=== PATIENT | male | born 1960 | race Caucasian/White ===

== ENCOUNTER 2016-08-17 13:31 | Outpatient (CLI) | payer MEDICARE ==
[2016-08-17 14:02] LABS: #Basophils 0.1 thou/uL (0.0-0.2); #Eosinphils 0.1 thou/uL (0.0-0.7); #Lymphocytes 2.4 thou/uL (1.20-3.40); #Monocytes 0.5 thou/uL (0.11-0.59); #Neutrophils 3.1 thou/uL (1.40-6.50); %Basophils 1.3 % (0.0-1.0); %Eosinophils 1.6 % (0.0-10.0); %Lymphocytes 38.8 % (21.0-51.0); %Monocytes 7.8 % (0.0-10.0); %Neutrophils 50.6 % (42.0-75.0); Hemoglobin 15.1 g/dL (14.0-18.0); Mean Corpuscular HGB CONC 33.5 g/dL (32.0-36.0); Mean Corpuscular Hemoglobin 30.3 pg (27.0-31.0); Mean Corpuscular Volume 90.4 fl (80.0-94.0); Mean Platelet Volume 8.3 fL (7.4-10.4); Platelet Count 212 thou/uL (130-400); RBC Distribution Width 11.2 % (11.5-14.5); Red Blood Cell (RBC) Count 4.99 mill/uL (4.70-6.10); White Blood Cell (WBC) Count 6.2 thou/uL (4.8-10.8)
[2016-08-17 14:13] LABS: Hemoglobin A1c 6.4 % (4.0-6.0)
[2016-08-17 14:19] LABS: ALT (SGPT) 52 U/L (8-55); AST (SGOT) 23 U/L (5-34); Albumin 4.4 g/dL (3.5-5.0); Alkaline Phosphatase 65 U/L (40-150); Anion Gap 15 mmol/L (10-20); BUN (Urea Nitrogen) 15 mg/dL (8.4-25.7); Bilirubin, Total 0.7 mg/dL (0.2-1.2); Calc. Creatinine Clearance 0 mL/min (70-130); Calcium 9.7 mg/dL (7.8-10.44); Carbon Dioxide 26 mmol/L (22-29); Cardiac Risk 3.4 (Less than 4.5); Chloride 105 mmol/L (98-107); Cholesterol 141 mg/dl (< 200 Desired); Estimated GFR-MDRD 79; Globulin 3.3 g/dL (2.4-3.5); Glucose 156 mg/dL (70-105); HDL Cholesterol 41 mg/dL (>60 Neg Risk); LDL Cholesterol, Calculated 82 mg/dL; Protein, Total 7.7 g/dL (6.0-8.3); Sodium 142 mmol/L (136-145); Triglycerides 88 mg/dL (Less than 150)
[2016-08-17 15:50] LABS: Bilirubin Negative (Negative); Blood, Urine Negative (Negative); Clarity Clear (Clear); Glucose, Urine (Dipstick) Negative (Negative); Leukocyte Negative (Negative); Nitrite Negative (Negative); Protein, Urine (Dipstick) Negative (Neg-Trace)
[2016-08-17 22:27] LABS: RBC/HPF 0-3 HPF (0-3); Squamous Epithelial 0-3 HPF (0-3); WBC/HPF 0-3 HPF (0-3)
[2016-08-18 17:28] LABS: Creatinine, Urine 131.18 mg/dL (63-166); Microalbumin Urine 2.8 mg/dL (0.5-50.0); Microalbumin/Creat Ratio 21.3 mg/g (Less than 30)
== END 2016-08-17 13:32 | disposition home or self-care (01) ==
LOC: NAV LAB 13:31
PROVIDERS: ATTEND Family Medicine
DX: E78.2 Mixed hyperlipidemia (principal); E11.9 Type 2 diabetes mellitus without complications; I10 Essential (primary) hypertension; E29.1 Testicular hypofunction
CPT/HCPCS: 80053; 80061; 81001; 82043; 83036; 84403; 84443; 85025

== ENCOUNTER 2016-08-21 17:52 | Emergency (ER) | payer MEDICARE ==
[2016-08-21] MEDS ORDERED: Sodium Chloride 0.9% 1,000 ML ONE ×2 (18:07→18:44)
[2016-08-21] MEDS ORDERED: Ondansetron HCl/PF 4 MG/2 ML Vial ONE ×2 (18:07→18:34)
[2016-08-21 18:18] LABS: Bilirubin Negative (Negative); Blood, Urine Negative (Negative); Clarity Clear (Clear); Glucose, Urine (Dipstick) Negative (Negative); Leukocyte Negative (Negative); Nitrite Negative (Negative); Protein, Urine (Dipstick) Trace mg/dL (Neg-Trace); Specific Gravity, Urine 1.025 (1.005-1.030)
[2016-08-21 18:34] LABS: #Basophils 0.1 thou/uL (0.0-0.2); #Eosinphils 0.1 thou/uL (0.0-0.7); #Lymphocytes 3.6 thou/uL (1.20-3.40); #Monocytes 0.7 thou/uL (0.11-0.59); #Neutrophils 6.1 thou/uL (1.40-6.50); %Basophils 1.3 % (0.0-1.0); %Lymphocytes 33.9 % (21.0-51.0); %Monocytes 6.8 % (0.0-10.0); %Neutrophils 57.1 % (42.0-75.0); Hemoglobin 15.6 g/dL (14.0-18.0); Mean Corpuscular HGB CONC 33.2 g/dL (32.0-36.0); Mean Corpuscular Hemoglobin 29.8 pg (27.0-31.0); Mean Corpuscular Volume 89.6 fl (80.0-94.0); Mean Platelet Volume 7.5 fL (7.4-10.4); Platelet Count 229 thou/uL (130-400); RBC Distribution Width 11.1 % (11.5-14.5); Red Blood Cell (RBC) Count 5.23 mill/uL (4.70-6.10); White Blood Cell (WBC) Count 10.7 thou/uL (4.8-10.8)
[2016-08-21 18:44] LABS: ALT (SGPT) 46 U/L (8-55); AST (SGOT) 23 U/L (5-34); Albumin 4.7 g/dL (3.5-5.0); Alkaline Phosphatase 72 U/L (40-150); Anion Gap 20 mmol/L (10-20); BUN (Urea Nitrogen) 22 mg/dL (8.4-25.7); Bilirubin, Total 0.6 mg/dL (0.2-1.2); Calc. Creatinine Clearance 0 mL/min (70-130); Calcium 10.3 mg/dL (7.8-10.44); Carbon Dioxide 21 mmol/L (22-29); Chloride 106 mmol/L (98-107); Estimated GFR-MDRD 70; Globulin 3.3 g/dL (2.4-3.5); Glucose 134 mg/dL (70-105); Lipase 31 U/L (8-78); Potassium 3.8 mmol/L (3.5-5.1); Sodium 143 mmol/L (136-145)
[2016-08-21] MEDS ORDERED: Ketorolac Tromethamine 30 MG/ML VIAL ONE (18:48)
--- NOTE | 2016-08-21 20:27 | CT ---
CT ABDOMEN NONCONTRAST CT PELVIS NONCONTRAST: (urolithiasis protocol) DATE: 08-21-16 HISTORY: 56-year-old male with sudden onset right flank pain. COMPARISON: None available. TECHNIQUE: IV injection of iodinated contrast media: none Oral contrast media: none FINDINGS: Other than for urolithiasis, the lack of IV and oral contrast limits the evaluation. There is a 2 mm tiny calculus at the right UVJ, causing mild right hydroureteronephrosis. There are no calculi within the right kidney. There is a 2 cm cyst at the lateral aspect of the right renal mi d/lower pole parenchyma. There are several small calculi in the left kidney, including two 1 mm calc guido at upper pole calices, and either an elongated single calculus or two calculi adjacent to each o ther at the left renal lower pole, in aggregate measuring 10 x 3 x 2 mm. No left sided hydronephrosi s. Within the limitations of a noncontrast scan, no gross pathology is identified involving the colon, appendix, small intestine, abdominal aorta, adrenals, pancreas, liver, or spleen. Lung bases are esvin ar. No pneumoperitoneum or ascites. IMPRESSION: 1. Mild right obstructive uropathy: A tiny 2 mm calculus at the right ureterovesical junction causin g mild right hydroureteronephrosis. 2. Left nephrolithiasis. RAMESH Montez POS: THANIA
== END 2016-08-21 19:10 | disposition home or self-care (01) ==
LOC: NAV ERS 17:52
DX: N13.2 Hydronephrosis with renal and ureteral calculous obstruction (principal); E10.9 Type 1 diabetes mellitus without complications; E78.5 Hyperlipidemia, unspecified; I10 Essential (primary) hypertension; Z79.899 Other long term (current) drug therapy
CPT/HCPCS: 74176; 80053; 81003; 83690; 85025; 96365; 96375; 96376; J1885; J2270; J2405; J7050

== ENCOUNTER 2016-08-28 11:11 | Emergency (ER) | payer MEDICARE ==
[2016-08-28] MEDS ORDERED: Tetracaine HCl 0.5% Ophth Soln 2 ML Bottle ONE (11:44)
[2016-08-28] MEDS ORDERED: Fluorescein Opthalmic Strip ONE (11:44)
[2016-08-28] MEDS ORDERED: Gentamicin Ophth Soln 0.3% 5 ml Bottle ONE (11:59)
[2016-08-28] MEDS ORDERED: Gentamicin Ophth Ointment 0.3% 3.5 gm Tube ONE (12:00)
== END 2016-08-28 12:07 | disposition home or self-care (01) ==
LOC: NAV ERS 11:11
DX: H10.9 Unspecified conjunctivitis (principal); E10.9 Type 1 diabetes mellitus without complications; I10 Essential (primary) hypertension; E78.5 Hyperlipidemia, unspecified; Z79.4 Long term (current) use of insulin; Z79.84 Long term (current) use of oral hypoglycemic drugs; Z79.899 Other long term (current) drug therapy
CPT/HCPCS: 99283

== ENCOUNTER 2017-01-05 19:55 | Emergency (ER) | payer MEDICARE ==
[2017-01-05] MEDS ORDERED: Ketorolac Tromethamine 30 MG/ML VIAL ONE (20:04)
[2017-01-05] MEDS ORDERED: Ondansetron HCl/PF 4 MG/2 ML Vial ONE (20:04)
[2017-01-05 20:16] LABS: #Basophils 0.1 thou/uL (0.0-0.2); #Eosinphils 0.1 thou/uL (0.0-0.7); #Lymphocytes 3.8 thou/uL (1.20-3.40); #Monocytes 0.8 thou/uL (0.11-0.59); #Neutrophils 5.9 thou/uL (1.40-6.50); %Basophils 0.8 % (0.0-1.0); %Eosinophils 0.8 % (0.0-10.0); %Lymphocytes 35.8 % (21.0-51.0); %Monocytes 7.3 % (0.0-10.0); %Neutrophils 55.3 % (42.0-75.0); Hemoglobin 15.9 g/dL (14.0-18.0); Mean Corpuscular HGB CONC 32.9 g/dL (32.0-36.0); Mean Corpuscular Hemoglobin 30.9 pg (27.0-31.0); Mean Corpuscular Volume 93.8 fl (80.0-94.0); Mean Platelet Volume 7.9 fL (7.4-10.4); Platelet Count 248 thou/uL (130-400); Red Blood Cell (RBC) Count 5.15 mill/uL (4.70-6.10); White Blood Cell (WBC) Count 10.6 thou/uL (4.8-10.8)
[2017-01-05] MEDS ORDERED: Tamsulosin HCl 0.4 MG CAP ONE (20:35)
[2017-01-05 20:44] LABS: ALT (SGPT) 62 U/L (8-55); AST (SGOT) 31 U/L (5-34); Albumin 4.8 g/dL (3.5-5.0); Alkaline Phosphatase 63 U/L (40-150); Anion Gap 17 mmol/L (10-20); BUN (Urea Nitrogen) 22 mg/dL (8.4-25.7); Bilirubin, Total 0.7 mg/dL (0.2-1.2); Calc. Creatinine Clearance 0 mL/min (70-130); Calcium 10.3 mg/dL (7.8-10.44); Carbon Dioxide 22 mmol/L (22-29); Chloride 107 mmol/L (98-107); Estimated GFR-MDRD 70; Globulin 3.3 g/dL (2.4-3.5); Glucose 154 mg/dL (70-105); Potassium 3.7 mmol/L (3.5-5.1); Protein, Total 8.1 g/dL (6.0-8.3); Sodium 142 mmol/L (136-145)
[2017-01-05 21:12] LABS: Bilirubin Negative (Negative); Blood, Urine Large (Negative); Clarity Clear (Clear); Glucose, Urine (Dipstick) Negative (Negative); Leukocyte Negative (Negative); Nitrite Negative (Negative); Protein, Urine (Dipstick) 30 mg/dL (Neg-Trace); Urobilinogen 0.2 mg/dL (0.2-1.0)
[2017-01-05 21:14] LABS: RBC/HPF GREATER THAN 50-TNTC HPF (0-3); Squamous Epithelial 0-3 HPF (0-3)
--- NOTE | 2017-01-05 21:22 | CT ---
CT ABDOMEN NONCONTRAST CT PELVIS NONCONTRAST: (urolithiasis protocol) DATE: 11/05/16 TIME: 8:20 p.m. HISTORY: 56-year-old male with acute left flank pain radiating to the left scrotum, with dysuria, nausea, and emesis. COMPARISON: 08/21/16 CT. TECHNIQUE: IV injection of iodinated contrast media: none Oral contrast media: none FINDINGS: Other than for urolithiasis, the lack of IV and oral contrast limits the evaluation. There is a 2 mm punctate calculus at the left UVJ causing mild dilation of the left ureter and mild dilation of the left renal collecting system, representing new findings compared to the previous CT (previously demonstrated 2 mm calculus in the contralateral right UVJ is no longer present). There are two calculi in left renal lower pole calyx. The larger one measures 7 mm, while the smalle r one measures 4 mm. They are very close to each other. There are two punctate tiny calculi in left upper and mid pole calyces, on the order of 2 mm in size each. Tiny 1 mm calculi in the right kidney are only visible on coronal reconstructions. The previously demonstrated slightly greater than 2 cm cyst at the lateral aspect right lower pole parenchyma has minimally grown to approximately 2.5 cm now. No right sided hydronephrosis. Within the limitations of noncontrast scan, no pathology is iden tified involving the abdominal aorta, adrenals, pancreas, liver, or spleen. No signs of acute coloni c diverticulitis. Normal appendix. No small bowel dilation. No free fluid or free air within the abd ominal cavity or pelvic cavity. Lung bases are clear. IMPRESSION: 1. Positive for left obstructive uropathy: Tiny 2 mm calculus at left ureterovesical junction c ausing mild left hydroureteronephrosis. 2. Left nephrolithiasis (at least 4 left renal calculi). RAMESH Montez POS: THANIA
== END 2017-01-05 22:06 | disposition home or self-care (01) ==
LOC: NAV ERS 19:55
DX: N13.2 Hydronephrosis with renal and ureteral calculous obstruction (principal); E10.9 Type 1 diabetes mellitus without complications; E78.5 Hyperlipidemia, unspecified; I10 Essential (primary) hypertension; Z79.84 Long term (current) use of oral hypoglycemic drugs
CPT/HCPCS: 74176; 80053; 81003; 81015; 85025; 87086; 96361; 96374; 96375; J1170; J1885; J2270; J2405

== ENCOUNTER 2018-09-05 11:09 | Emergency (ER) | payer MEDICARE ==
[2018-09-05] MEDS ORDERED: Ondansetron PF 4 MG/2 ML Vial ONE ×2 (11:29→11:30)
[2018-09-05] MEDS ORDERED: Sodium Chloride 0.9% 1,000 ML ONE (11:29)
[2018-09-05] MEDS ORDERED: Ketorolac Tromethamine 30 MG/ML VIAL ONE (11:30)
[2018-09-05 11:41] LABS: #Basophils 0.1 thou/uL (0.0-0.2); #Monocytes 0.5 thou/uL (0.11-0.59); #Neutrophils 10.4 thou/uL (1.40-6.50); %Basophils 0.7 % (0.0-1.0); %Eosinophils 0.1 % (0.0-10.0); %Lymphocytes 8.3 % (21.0-51.0); %Monocytes 3.9 % (0.0-10.0); %Neutrophils 87.1 % (42.0-75.0); Hemoglobin 14.1 g/dL (14.0-18.0); Mean Corpuscular HGB CONC 34.4 g/dL (32.0-36.0); Mean Corpuscular Hemoglobin 30.8 pg (27.0-31.0); Mean Corpuscular Volume 89.3 fL (78.0-98.0); Mean Platelet Volume 7.4 fL (7.4-10.4); Platelet Count 201 thou/uL (130-400); RBC Distribution Width 11.1 % (11.5-14.5); Red Blood Cell (RBC) Count 4.59 mill/uL (4.70-6.10); White Blood Cell (WBC) Count 11.9 thou/uL (4.8-10.8)
--- NOTE | 2018-09-05 11:53 | CT ---
CT Stone Protocol History: Flank pain Comparison: CT 2017 Findings: Lung bases are clear. No pericardial effusion. There is high-grade left hydroureteronephrosis due to a partially obstructing calculus measuring 3 x 5 mm proximal left ureter 5 cm from the ureteropelvic junction. There are punctate 1 mm left superior and interpolar calculi. There is also a 4 x 6 mm calculus and a 2 x 2 mm calculus inferior l eft renal collecting system. Incompletely evaluated hypodensity interpolar right kidney is similar. No right nephro ureterolithiasis or hydroureteronephrosis. Urinary bladder is unremarkable. Appendix is visualized and is normal. No acute osseous abnormality. The aortoiliac contour is nonaneurysmal. No retroperitoneal periaortic adenopathy. Noncontrast evaluation of the liver, spleen, pancreas are unremarkable. Gallbladder is unremarkable. No dilated loops of large or small bowel. Impression: High-grade partial obstructing calculus proximal left ureter measuring 3 x 5 mm, 5 cm dis monty to the ureteropelvic junction. There is moderate left hydroureteronephrosis and perinephric stranding.
[2018-09-05 11:55] LABS: ALT (SGPT) 46 U/L (8-55); AST (SGOT) 27 U/L (5-34); Albumin 4.3 g/dL (3.5-5.0); Alkaline Phosphatase 78 U/L (40-150); Anion Gap 18 mmol/L (10-20); BUN (Urea Nitrogen) 21 mg/dL (8.4-25.7); Bilirubin, Total 0.7 mg/dL (0.2-1.2); Calc. Creatinine Clearance 0 mL/min (70-130); Calcium 9.5 mg/dL (7.8-10.44); Carbon Dioxide 21 mmol/L (22-29); Chloride 104 mmol/L (98-107); Estimated GFR-MDRD 76; Globulin 2.8 g/dL (2.4-3.5); Glucose 332 mg/dL (70-105); Potassium 3.5 mmol/L (3.5-5.1); Protein, Total 7.1 g/dL (6.0-8.3); Sodium 139 mmol/L (136-145)
[2018-09-05 12:11] LABS: Bilirubin Negative (Negative); Blood, Urine Trace (Negative); Clarity Clear (Clear); Glucose, Urine (Dipstick) 500 mg/dL (Negative); Leukocyte Negative (Negative); Nitrite Negative (Negative); Protein, Urine (Dipstick) Negative (Neg-Trace); Urobilinogen 0.2 mg/dL (0.2-1.0); pH, Urine 5.5 (5.0-9.0)
[2018-09-05] MEDS ORDERED: Fentanyl 100 MCG/2 ML VIAL ONE (12:22)
[2018-09-05 12:24] LABS: Bacteria/HPF None Seen HPF (None Seen); RBC/HPF 0-3 HPF (0-3); Squamous Epithelial 0-3 HPF (0-3); WBC/HPF None Seen HPF (0-3)
== END 2018-09-05 13:43 | disposition home or self-care (01) ==
LOC: NAV ERS 11:09
DX: N13.2 Hydronephrosis with renal and ureteral calculous obstruction (principal); E10.9 Type 1 diabetes mellitus without complications; I10 Essential (primary) hypertension; E78.5 Hyperlipidemia, unspecified; Z79.899 Other long term (current) drug therapy; Z87.442 Personal history of urinary calculi
CPT/HCPCS: 74176; 80053; 81003; 81015; 85025; 96361; 96374; 96375; J1885; J2405; J3010; J7050

== ENCOUNTER 2019-04-08 14:06 | Outpatient (CLI) | payer MEDICARE ==
--- NOTE | 2019-04-08 14:45 | RAD ---
EXAM: 3 views of the right shoulder HISTORY: Shoulder pain COMPARISON: None FINDINGS: There is no evidence of acute fracture or dislocation. Mild glenohumeral degenerative castorena es are present. No soft tissue swelling is seen. The visualized thorax is unremarkable. IMPRESSION: Mild right shoulder osteoarthritis.
== END 2019-04-08 14:07 | disposition home or self-care (01) ==
LOC: NAV RAD 14:06
PROVIDERS: ATTEND Family Medicine
DX: M75.101 Unspecified rotator cuff tear or rupture of right shoulder, not specified as traumatic (principal); M19.011 Primary osteoarthritis, right shoulder